=== PATIENT | male | born 1975 | race Caucasian/White ===

== ENCOUNTER 2017-12-05 04:22 | Emergency (ER) | payer BC ==
[~2017-12-05] VITALS: Ht 182.9 cm; Wt 90.7 kg
[2017-12-05 04:30] VITALS: BP 132/89
== END 2017-12-05 04:50 | disposition home or self-care (01) ==
LOC: ER 04:23
DX: F41.9 Anxiety disorder, unspecified (principal); F45.8 Other somatoform disorders
CPT/HCPCS: 99284; A4606; Z7610